=== PATIENT | male | born 1970 | race Caucasian/White ===

== ENCOUNTER 2022-01-26 12:17 | Emergency (ER) | payer BC ==
[~2022-01-26] VITALS: Ht 190.5 cm; Wt 111.4 kg
[2022-01-26 12:20] VITALS: BP 146/105
== END 2022-01-26 16:02 | disposition home or self-care (01) ==
LOC: ER 12:17
DX: S60.221A Contusion of right hand, initial encounter (principal); W21.89XA Striking against or struck by other sports equipment, initial encounter; Y93.89 Activity, other specified; Y92.89 Other specified places as the place of occurrence of the external cause; Y99.8 Other external cause status
CPT/HCPCS: 73090; 99283

== ENCOUNTER 2024-05-09 12:38 | Inpatient (IN) | payer BC ==
[~2024-05-09] VITALS: Ht 190.5 cm; Wt 122.1 kg
[2024-05-09] VITALS (17 sets, daily range): BP systolic 114–144; BP diastolic 78–98; PULSE 86–100; RESP 13–23; TEMP 98.1–98.5; O2SAT 91–97
[2024-05-09 13:34] LABS: BILIRUBIN,URINE NEGATIVE (Neg); CLARITY,URINE CLEAR (Clear); COLOR,URINE YELLOW (Yellow); GLUCOSE, URINE NEGATIVE (Neg); KETONES,URINE NEGATIVE (Neg); LEUKOCYTE ESTERASE ,URINE NEGATIVE (Neg); NITRITES, URINE NEGATIVE (Neg); OCCULT BLOOD,URINE NEGATIVE (Neg); PH,URINE 6.5 (4.8-8.0); PROTEIN,URINE NEGATIVE (Neg); UROBILINOGEN,URINE 0.2 E.U/dL (0.2-1.0)
[2024-05-09 13:44] LABS: UA COLLECTION TYPE CLN CATCH MIDSTREAM
[2024-05-09] MEDS ORDERED: DOXY20TA20 PO (14:00)
[2024-05-09] MEDS ORDERED: PANT40TA54 PO (14:01)
[2024-05-09 14:04] LABS: BASOPHILS % (AUTO) 0.2 % (0-1); EOSINOPHILS % (AUTO) 0.1 % (0-6); HEMATOCRIT 50.4 % (42.0-52.0); HEMOGLOBIN 17.4 g/dl (14.0-17.9); LYMPHOCYTES # (AUTO) 0.7 X10'3 (1.1-4.8); LYMPHOCYTES % (AUTO) 4.7 % (21-51); MEAN CORPUSCULAR HEMOGLOBIN 32.4 PG (27.0-31.0); MEAN CORPUSCULAR HGB CONC 34.6 g/dL (33.0-36.5); MEAN CORPUSCULAR VOLUME 93.6 FL (78-98); MEAN PLATELET VOLUME 8.1 FL (7.4-10.4); MONOCYTES # (AUTO) 1.1 X10'3 (0-0.9); MONOCYTES % (AUTO) 7.1 % (2-12); NEUTROPHILS # (AUTO) 13.8 X10'3 (1.8-7.7); NEUTROPHILS % (AUTO) 87.9 % (42-75); PLATELET COUNT 178 X10'3 (140-440); RED BLOOD COUNT 5.38 X10'6 (4.70-6.10); RED CELL DISTRIBUTION WIDTH 13.4 % (11.5-14.5); WHITE BLOOD COUNT 15.7 X10'3 (4.5-11.0)
[2024-05-09 14:22] LABS: ALANINE AMINOTRANSFERASE 62 U/L (12-78); ALBUMIN 4.1 G/DL (3.4-5.0); ALBUMIN/GLOBULIN RATIO 1.2 (1.1-1.5); ALKALINE PHOSPHATASE 85 IU/L (46-116); ANION GAP 12 (8-16); ASPARTATE AMINO TRANSFERASE 34 U/L (10-37); BILIRUBIN,TOTAL 1.5 MG/DL (0.1-1.0); BLOOD UREA NITROGEN 13 MG/DL (7-18); BUN/CREATININE RATIO 13.1 (10.0-20.0); CALCIUM 9.6 MG/DL (8.5-10.1); CHLORIDE 99 MMOL/L (99-107); CREATININE 0.99 MG/DL (0.60-1.10); GLUCOSE 125 MG/DL (70-104); LIPASE 22 U/L (16-77); POTASSIUM 3.3 MMOL/L (3.5-5.1); SODIUM 136 MMOL/L (135-145); TOTAL CARBON DIOXIDE 25.1 MMOL/L (24-32); TOTAL PROTEIN 7.6 G/DL (6.4-8.2); eCRCL 100 ML/MIN; eGFR 78 ML/MIN
[2024-05-09] MEDS: ondansetron/PF 4mg/2ml inj IV ONE (14:34)
[2024-05-09] MEDS: HYDROmorphone 1 mg/ml syringe IV ONE ×3 (14:35→18:30)
[2024-05-09] MEDS: normal saline 1000ml 1,000 ML IV ONE (14:35)
[2024-05-09] MEDS: piperacillin/tazo 3.375gm/50ml 50 ML IV STA (14:36)
[2024-05-09] MEDS ORDERED: iohexol 300mg/ml 100ml inj. ONE (14:36)
[2024-05-09] MEDS ORDERED: magnesium sulf-water 4G/100mL 100 ML IV PRN (15:35)
[2024-05-09] MEDS ORDERED: potassium Cl 40MEQ/1/2NS 520ml 520 ML IV PRN (15:35)
[2024-05-09] MEDS ORDERED: ondansetron/PF 4mg/2ml inj IV PRN ×2 (15:35→16:15)
[2024-05-09] MEDS ORDERED: magnesium sulf-water 2g/50mL 50 ML IV PRN (15:35)
[2024-05-09] MEDS ORDERED: acetaminophen 325mg tablet PO PRN (15:35)
[2024-05-09] MEDS ORDERED: magnesium Cl slow-release 64mg tablet PO PRN (15:35)
[2024-05-09] MEDS ORDERED: magnesium hydroxide 30ml (MOM) UD suspension PO PRN (15:35)
[2024-05-09] MEDS ORDERED: mag hydrox/Alum hydrox/simeth 30ml oral suspension PO PRN (15:35)
[2024-05-09] MEDS ORDERED: potassium Cl 20 mEq SR tablet PO PRN (15:35)
[2024-05-09] MEDS: normal saline 1000ml 1,000 ML IV SCH (15:35)
[2024-05-09] MEDS ORDERED: BUPIVAcaine/PF 2.5mg/ml (0.25%) 10ml vial ONE (15:53)
[2024-05-09] MEDS ORDERED: fentaNYL/PF 50MCG/1 ML 2ML syringe IV PRN ×2 (16:15)
[2024-05-09] MEDS ORDERED: morphine 4 MG/ML inj SYRINge IV PRN (16:15)
[2024-05-09] MEDS ORDERED: labetalol 20mg/4ml (5mg/ml) syringe IV PRN (16:15)
[2024-05-09] MEDS ORDERED: hydrALAZINE 20mg/ml inj. IV PRN (16:15)
[2024-05-09] MEDS ORDERED: sevoflurane 250ml liquid IH ONE (16:18)
[2024-05-09] MEDS ORDERED: midazolam 1 mg/ML 2ml injection ONE (16:20)
[2024-05-09] MEDS ORDERED: fentaNYL/PF 50MCG/1 ML 2ML syringe ONE (16:20)
[2024-05-09] MEDS ORDERED: dexamethasone sod phosphate 4mg/ml inj. ONE (16:22)
[2024-05-09] MEDS ORDERED: propofol inj 20 ML IV ONE ×2 (16:22→16:48)
[2024-05-09] MEDS ORDERED: LIDOcaine 2% (20mg/ml) 5ml vial ONE (16:22)
[2024-05-09] MEDS ORDERED: ceFAZolin 1000mg inj ONE ×3 (16:22)
[2024-05-09] MEDS ORDERED: rocuronium 10mg/ml inj IV ONE ×2 (16:22→16:52)
[2024-05-09] MEDS ORDERED: ondansetron/PF 4mg/2ml inj ONE (16:22)
[2024-05-09] MEDS ORDERED: LORazepam 2 mg/ml vial IV PRN (16:25)
[2024-05-09] MEDS ORDERED: sugammadex 200mg/2ml injection IV ONE (16:42)
[2024-05-09] MEDS ORDERED: metroNIDAZOLE-Flagyl 500mg/NS 100 ML IV ONE (16:45)
[2024-05-09] MEDS ORDERED: labetalol 20mg/4ml (5mg/ml) syringe IV ONE (16:49)
[2024-05-09] MEDS: LACTED IV ONE (18:30)
[2024-05-09] MEDS: ringers solution, lacted 1,000 ML IV SCH ×2 (18:30→23:25)
[2024-05-09] MEDS: [UNRECOGNIZED DRUG - OTHER] IV ONE (18:30)
[2024-05-09] MEDS: RINGERS IV ONE (18:30)
[2024-05-09] MEDS: morphine 2 MG/ML inj. syringe IV PRN (18:42)
[2024-05-09] MEDS: K and/or MAG REPLACEMENT MC SCH (20:00)
[2024-05-09] MEDS: thiamine 100mg/ml 2ml inj. IV SCH (20:52)
[2024-05-09] MEDS: piperacillin/tazo 3.375gm/50ml 50 ML IV SCH (20:52)
[2024-05-09] MEDS ORDERED: ringers solution, lactated 500ml IV solution IV SCH (21:00)
[2024-05-10] MEDS: folic acid 1mg/0.2ml inj IV SCH (00:30)
[2024-05-10] MEDS: potassium Cl 20 mEq SR tablet PO PRN (00:32)
[2024-05-10] MEDS: morphine 2 MG/ML inj. syringe IV PRN (04:55)
[2024-05-10 05:21] LABS: BASOPHILS % (AUTO) 0.1 % (0-1); EOSINOPHILS % (AUTO) 0 % (0-6); HEMATOCRIT 45.7 % (42.0-52.0); HEMOGLOBIN 15.6 g/dl (14.0-17.9); LYMPHOCYTES # (AUTO) 0.5 X10'3 (1.1-4.8); LYMPHOCYTES % (AUTO) 3.9 % (21-51); MEAN CORPUSCULAR HEMOGLOBIN 32.3 PG (27.0-31.0); MEAN CORPUSCULAR VOLUME 94.8 FL (78-98); MEAN PLATELET VOLUME 8.5 FL (7.4-10.4); MONOCYTES # (AUTO) 0.8 X10'3 (0-0.9); MONOCYTES % (AUTO) 6.9 % (2-12); NEUTROPHILS # (AUTO) 10.6 X10'3 (1.8-7.7); NEUTROPHILS % (AUTO) 89.1 % (42-75); PLATELET COUNT 165 X10'3 (140-440); RED BLOOD COUNT 4.82 X10'6 (4.70-6.10); RED CELL DISTRIBUTION WIDTH 13.5 % (11.5-14.5); WHITE BLOOD COUNT 11.9 X10'3 (4.5-11.0)
[2024-05-10 05:48] LABS: ALANINE AMINOTRANSFERASE 42 U/L (12-78); ALBUMIN 3.1 G/DL (3.4-5.0); ALBUMIN/GLOBULIN RATIO 0.8 (1.1-1.5); ALKALINE PHOSPHATASE 53 IU/L (46-116); ANION GAP 9 (8-16); ASPARTATE AMINO TRANSFERASE 31 U/L (10-37); BILIRUBIN,TOTAL 1.7 MG/DL (0.1-1.0); BLOOD UREA NITROGEN 12 MG/DL (7-18); CALCIUM 8.9 MG/DL (8.5-10.1); CHLORIDE 103 MMOL/L (99-107); CHOL/HDL RATIO 1.8 (0.00-4.99); CHOLESTEROL 138 MG/DL (0-200); CREATININE 1.09 MG/DL (0.60-1.10); GLUCOSE 168 MG/DL (70-104); HDL CHOLESTEROL 75 MG/DL (35-60); LDL CHOLESTEROL 52 MG/DL (50-100); LIPASE 15 U/L (16-77); PHOSPHORUS 2.8 MG/DL (2.3-4.5); POTASSIUM 3.7 MMOL/L (3.5-5.1); SODIUM 137 MMOL/L (135-145); TOTAL CARBON DIOXIDE 24.7 MMOL/L (24-32); TOTAL PROTEIN 6.8 G/DL (6.4-8.2); TRIGLYCERIDES 69 MG/DL (20-135); eCRCL 34 ML/MIN; eGFR 70 ML/MIN
[2024-05-10 06:00] VITALS: BP 126/67; PULSE 76; RESP 14; TEMP 98.2; O2SAT 93
[2024-05-10 10:00] VITALS: BP 129/86; PULSE 84; RESP 18; TEMP 97.9; O2SAT 92
[2024-05-10] MEDS: HYDROcodone/acetaminophen 10/325mg tab PO PRN (10:29)
[2024-05-10] MEDS: pantoprazole 40 MG vial IV SCH (10:33)
[2024-05-10 18:00] VITALS: BP 129/81; PULSE 54; RESP 17; TEMP 99; O2SAT 93
[2024-05-10 20:00] VITALS: RESP 17; O2SAT 93
[2024-05-10 22:00] VITALS: BP 111/75; PULSE 86; RESP 20; TEMP 99; O2SAT 94
[2024-05-10 23:36] VITALS: O2SAT 94
[2024-05-11 04:38] LABS: BASOPHILS % (AUTO) 0.2 % (0-1); EOSINOPHILS % (AUTO) 0.5 % (0-6); HEMATOCRIT 42.7 % (42.0-52.0); HEMOGLOBIN 14.5 g/dl (14.0-17.9); LYMPHOCYTES # (AUTO) 0.7 X10'3 (1.1-4.8); MEAN CORPUSCULAR HEMOGLOBIN 32.5 PG (27.0-31.0); MEAN CORPUSCULAR VOLUME 95.6 FL (78-98); MEAN PLATELET VOLUME 8.4 FL (7.4-10.4); MONOCYTES # (AUTO) 0.5 X10'3 (0-0.9); MONOCYTES % (AUTO) 5.9 % (2-12); NEUTROPHILS # (AUTO) 7.2 X10'3 (1.8-7.7); NEUTROPHILS % (AUTO) 85.4 % (42-75); PLATELET COUNT 149 X10'3 (140-440); RED BLOOD COUNT 4.47 X10'6 (4.70-6.10); RED CELL DISTRIBUTION WIDTH 13.8 % (11.5-14.5); WHITE BLOOD COUNT 8.4 X10'3 (4.5-11.0)
[2024-05-11 04:56] LABS: ALANINE AMINOTRANSFERASE 37 U/L (12-78); ALBUMIN 2.9 G/DL (3.4-5.0); ALBUMIN/GLOBULIN RATIO 0.8 (1.1-1.5); ALKALINE PHOSPHATASE 50 IU/L (46-116); ANION GAP 9 (8-16); ASPARTATE AMINO TRANSFERASE 38 U/L (10-37); BILIRUBIN,TOTAL 1.2 MG/DL (0.1-1.0); BLOOD UREA NITROGEN 14 MG/DL (7-18); BUN/CREATININE RATIO 12.6 (10.0-20.0); CHLORIDE 105 MMOL/L (99-107); CREATININE 1.11 MG/DL (0.60-1.10); GLUCOSE 117 MG/DL (70-104); LIPASE 15 U/L (16-77); MAGNESIUM 2.3 MG/DL (1.5-2.4); PHOSPHORUS 2.6 MG/DL (2.3-4.5); POTASSIUM 3.7 MMOL/L (3.5-5.1); SODIUM 140 MMOL/L (135-145); TOTAL CARBON DIOXIDE 26.2 MMOL/L (24-32); TOTAL PROTEIN 6.7 G/DL (6.4-8.2); eCRCL 89 ML/MIN; eGFR 69 ML/MIN
[2024-05-11 06:00] VITALS: BP 117/80; PULSE 90; RESP 20; TEMP 98.4; O2SAT 95
[2024-05-11 10:00] VITALS: BP 126/83; PULSE 97; RESP 18; TEMP 98.3; O2SAT 96
[2024-05-11] MEDS ORDERED: LIDOcaine 1% W/epiNEPHrine 1:100,000 20ml vial SQ ONE (11:25)
[2024-05-11] MEDS: linezolid 600mg/300ml PREMIX 300 ML IV SCH (12:42)
[2024-05-11] MEDS: CefTRIAXone 2gm/D5W 50ml BAG 50 ML IV SCH (12:43)
[2024-05-11] MEDS: metroNIDAZOLE-Flagyl 500mg/NS 100 ML IV SCH (17:08)
[2024-05-11 18:00] VITALS: BP 128/88; PULSE 89; RESP 17; TEMP 98.7; O2SAT 94
[2024-05-11 20:10] VITALS: RESP 16
[2024-05-11 22:00] VITALS: BP 116/63; PULSE 89; RESP 20; TEMP 100.2; O2SAT 95
[2024-05-12 04:26] LABS: BASOPHILS % (AUTO) 0.3 % (0-1); EOSINOPHILS # (AUTO) 0.2 X10'3 (0-0.9); EOSINOPHILS % (AUTO) 2.1 % (0-6); HEMATOCRIT 42.8 % (42.0-52.0); HEMOGLOBIN 14.8 g/dl (14.0-17.9); LYMPHOCYTES # (AUTO) 0.8 X10'3 (1.1-4.8); LYMPHOCYTES % (AUTO) 10.4 % (21-51); MEAN CORPUSCULAR HEMOGLOBIN 33.1 PG (27.0-31.0); MEAN CORPUSCULAR HGB CONC 34.5 g/dL (33.0-36.5); MEAN CORPUSCULAR VOLUME 95.8 FL (78-98); MEAN PLATELET VOLUME 8.2 FL (7.4-10.4); MONOCYTES # (AUTO) 0.6 X10'3 (0-0.9); MONOCYTES % (AUTO) 8.5 % (2-12); NEUTROPHILS # (AUTO) 5.9 X10'3 (1.8-7.7); NEUTROPHILS % (AUTO) 78.7 % (42-75); PLATELET COUNT 174 X10'3 (140-440); RED BLOOD COUNT 4.46 X10'6 (4.70-6.10); RED CELL DISTRIBUTION WIDTH 13.6 % (11.5-14.5); WHITE BLOOD COUNT 7.5 X10'3 (4.5-11.0)
[2024-05-12 04:44] LABS: ALANINE AMINOTRANSFERASE 40 U/L (12-78); ALBUMIN 2.6 G/DL (3.4-5.0); ALBUMIN/GLOBULIN RATIO 0.6 (1.1-1.5); ALKALINE PHOSPHATASE 59 IU/L (46-116); ANION GAP 7 (8-16); ASPARTATE AMINO TRANSFERASE 37 U/L (10-37); BILIRUBIN,TOTAL 0.8 MG/DL (0.1-1.0); BLOOD UREA NITROGEN 12 MG/DL (7-18); BUN/CREATININE RATIO 9.4 (10.0-20.0); CALCIUM 8.7 MG/DL (8.5-10.1); CHLORIDE 104 MMOL/L (99-107); CREATININE 1.27 MG/DL (0.60-1.10); GLUCOSE 115 MG/DL (70-104); LIPASE 22 U/L (16-77); MAGNESIUM 2.2 MG/DL (1.5-2.4); PHOSPHORUS 3.8 MG/DL (2.3-4.5); POTASSIUM 3.8 MMOL/L (3.5-5.1); SODIUM 140 MMOL/L (135-145); TOTAL CARBON DIOXIDE 29.3 MMOL/L (24-32); TOTAL PROTEIN 6.8 G/DL (6.4-8.2); eCRCL 78 ML/MIN; eGFR 59 ML/MIN
[2024-05-12 06:00] VITALS: BP 128/79; PULSE 76; RESP 20; TEMP 98.9; O2SAT 95
[2024-05-12 08:04] VITALS: RESP 16
[2024-05-12 10:00] VITALS: BP 137/87; PULSE 73; RESP 17; TEMP 99.5; O2SAT 95
[2024-05-12] MEDS ORDERED: Dakins solution (1/4 strength) 473ml solution TP SCH (10:40)
[2024-05-12 18:00] VITALS: BP 145/91; PULSE 80; RESP 17; TEMP 98.9; O2SAT 96
[2024-05-12 20:00] VITALS: RESP 18
[2024-05-12 22:00] VITALS: BP 122/71; PULSE 79; RESP 18; TEMP 98.8; O2SAT 94
[2024-05-13 05:10] LABS: BASOPHILS % (AUTO) 0.3 % (0-1); EOSINOPHILS # (AUTO) 0.2 X10'3 (0-0.9); EOSINOPHILS % (AUTO) 2.3 % (0-6); HEMATOCRIT 44.7 % (42.0-52.0); HEMOGLOBIN 15.2 g/dl (14.0-17.9); LYMPHOCYTES # (AUTO) 0.7 X10'3 (1.1-4.8); LYMPHOCYTES % (AUTO) 8.3 % (21-51); MEAN CORPUSCULAR HEMOGLOBIN 32.3 PG (27.0-31.0); MEAN CORPUSCULAR VOLUME 94.8 FL (78-98); MEAN PLATELET VOLUME 7.8 FL (7.4-10.4); MONOCYTES # (AUTO) 0.9 X10'3 (0-0.9); MONOCYTES % (AUTO) 10.3 % (2-12); NEUTROPHILS # (AUTO) 7.1 X10'3 (1.8-7.7); NEUTROPHILS % (AUTO) 78.8 % (42-75); PLATELET COUNT 204 X10'3 (140-440); RED BLOOD COUNT 4.72 X10'6 (4.70-6.10); RED CELL DISTRIBUTION WIDTH 13.5 % (11.5-14.5)
[2024-05-13 05:25] LABS: ALANINE AMINOTRANSFERASE 45 U/L (12-78); ALBUMIN 2.6 G/DL (3.4-5.0); ALBUMIN/GLOBULIN RATIO 0.7 (1.1-1.5); ALKALINE PHOSPHATASE 58 IU/L (46-116); ANION GAP 6 (8-16); ASPARTATE AMINO TRANSFERASE 33 U/L (10-37); BILIRUBIN,TOTAL 0.9 MG/DL (0.1-1.0); CALCIUM 8.6 MG/DL (8.5-10.1); CHLORIDE 104 MMOL/L (99-107); CREATININE 1.22 MG/DL (0.60-1.10); GLUCOSE 114 MG/DL (70-104); LIPASE 41 U/L (16-77); MAGNESIUM 2.2 MG/DL (1.5-2.4); PHOSPHORUS 4.7 MG/DL (2.3-4.5); SODIUM 139 MMOL/L (135-145); TOTAL CARBON DIOXIDE 29.2 MMOL/L (24-32); TOTAL PROTEIN 6.6 G/DL (6.4-8.2); eCRCL 81 ML/MIN; eGFR 61 ML/MIN
[2024-05-13 05:31] LABS: BLOOD UREA NITROGEN 12 MG/DL (7-18); BUN/CREATININE RATIO 9.8 (10.0-20.0)
[2024-05-13 06:00] VITALS: BP 116/76; PULSE 80; RESP 18; TEMP 97.9; O2SAT 95
[2024-05-13 07:58] VITALS: RESP 16
[2024-05-13 09:44] VITALS: BP 135/87; PULSE 79; RESP 18; TEMP 97.8; O2SAT 93
[2024-05-13 18:00] VITALS: BP 119/83; PULSE 80; RESP 16; TEMP 98.7; O2SAT 96
[2024-05-13 20:00] VITALS: RESP 16; O2SAT 96
[2024-05-13 22:00] VITALS: BP 138/79; PULSE 74; RESP 16; TEMP 98; O2SAT 94
[2024-05-14 06:01] LABS: BASOPHILS % (AUTO) 0.2 % (0-1); EOSINOPHILS # (AUTO) 0.2 X10'3 (0-0.9); HEMATOCRIT 47.2 % (42.0-52.0); HEMOGLOBIN 16.3 g/dl (14.0-17.9); LYMPHOCYTES # (AUTO) 0.9 X10'3 (1.1-4.8); LYMPHOCYTES % (AUTO) 8.7 % (21-51); MEAN CORPUSCULAR HEMOGLOBIN 32.6 PG (27.0-31.0); MEAN CORPUSCULAR HGB CONC 34.5 g/dL (33.0-36.5); MEAN CORPUSCULAR VOLUME 94.5 FL (78-98); MEAN PLATELET VOLUME 7.8 FL (7.4-10.4); MONOCYTES # (AUTO) 1.2 X10'3 (0-0.9); NEUTROPHILS # (AUTO) 8.2 X10'3 (1.8-7.7); NEUTROPHILS % (AUTO) 78.1 % (42-75); PLATELET COUNT 233 X10'3 (140-440); RED CELL DISTRIBUTION WIDTH 13.3 % (11.5-14.5); WHITE BLOOD COUNT 10.5 X10'3 (4.5-11.0)
[2024-05-14 06:22] LABS: ALANINE AMINOTRANSFERASE 40 U/L (12-78); ALBUMIN 2.7 G/DL (3.4-5.0); ALBUMIN/GLOBULIN RATIO 0.6 (1.1-1.5); ALKALINE PHOSPHATASE 63 IU/L (46-116); ANION GAP 6 (8-16); ASPARTATE AMINO TRANSFERASE 21 U/L (10-37); BILIRUBIN,TOTAL 0.7 MG/DL (0.1-1.0); BLOOD UREA NITROGEN 12 MG/DL (7-18); BUN/CREATININE RATIO 11.1 (10.0-20.0); CALCIUM 8.9 MG/DL (8.5-10.1); CHLORIDE 103 MMOL/L (99-107); CREATININE 1.08 MG/DL (0.60-1.10); GLUCOSE 119 MG/DL (70-104); LIPASE 37 U/L (16-77); PHOSPHORUS 3.7 MG/DL (2.3-4.5); POTASSIUM 4.3 MMOL/L (3.5-5.1); SODIUM 140 MMOL/L (135-145); TOTAL CARBON DIOXIDE 30.7 MMOL/L (24-32); TOTAL PROTEIN 6.9 G/DL (6.4-8.2); eCRCL 91 ML/MIN; eGFR 71 ML/MIN
[2024-05-14 06:51] VITALS: BP 120/77; PULSE 72; RESP 18; TEMP 98; O2SAT 94
[2024-05-14 08:00] VITALS: RESP 16
[2024-05-14 11:00] VITALS: BP 134/88; PULSE 84; RESP 16; TEMP 99.2; O2SAT 95
[2024-05-14] MEDS: linezolid 600mg tablet PO SCH (12:06)
[2024-05-14 18:00] VITALS: BP 124/70; PULSE 79; RESP 16; TEMP 99; O2SAT 96
[2024-05-14] MEDS: lactobacillus rhamnosus 10,000 MMU CELLS/CAPSULE PO SCH (19:44)
[2024-05-14] MEDS: metroNIDAZOLE 500mg tablet PO SCH (19:44)
[2024-05-14 20:00] VITALS: RESP 16; O2SAT 96
[2024-05-14 22:00] VITALS: BP 129/75; PULSE 77; RESP 18; TEMP 99; O2SAT 95
[2024-05-15] MEDS: ciprofloxacin 250mg tablet PO SCH (00:15)
[2024-05-15 06:00] VITALS: BP 125/71; PULSE 74; RESP 18; TEMP 98.1; O2SAT 96
[2024-05-15 09:41] LABS: BASOPHILS % (AUTO) 0.3 % (0-1); EOSINOPHILS # (AUTO) 0.1 X10'3 (0-0.9); EOSINOPHILS % (AUTO) 1.6 % (0-6); HEMATOCRIT 46.5 % (42.0-52.0); HEMOGLOBIN 15.9 g/dl (14.0-17.9); LYMPHOCYTES # (AUTO) 0.8 X10'3 (1.1-4.8); MEAN CORPUSCULAR HEMOGLOBIN 32.6 PG (27.0-31.0); MEAN CORPUSCULAR HGB CONC 34.1 g/dL (33.0-36.5); MEAN CORPUSCULAR VOLUME 95.5 FL (78-98); MEAN PLATELET VOLUME 7.7 FL (7.4-10.4); MONOCYTES # (AUTO) 0.5 X10'3 (0-0.9); MONOCYTES % (AUTO) 5.6 % (2-12); NEUTROPHILS # (AUTO) 7.6 X10'3 (1.8-7.7); NEUTROPHILS % (AUTO) 83.5 % (42-75); PLATELET COUNT 259 X10'3 (140-440); RED BLOOD COUNT 4.87 X10'6 (4.70-6.10); RED CELL DISTRIBUTION WIDTH 13.5 % (11.5-14.5); WHITE BLOOD COUNT 9.1 X10'3 (4.5-11.0)
[2024-05-15 09:47] LABS: ALANINE AMINOTRANSFERASE 39 U/L (12-78); ALBUMIN 2.7 G/DL (3.4-5.0); ALBUMIN/GLOBULIN RATIO 0.7 (1.1-1.5); ALKALINE PHOSPHATASE 61 IU/L (46-116); ANION GAP 10 (8-16); ASPARTATE AMINO TRANSFERASE 18 U/L (10-37); BILIRUBIN,TOTAL 0.5 MG/DL (0.1-1.0); BLOOD UREA NITROGEN 14 MG/DL (7-18); BUN/CREATININE RATIO 13.3 (10.0-20.0); CALCIUM 8.8 MG/DL (8.5-10.1); CHLORIDE 103 MMOL/L (99-107); CREATININE 1.05 MG/DL (0.60-1.10); GLUCOSE 194 MG/DL (70-104); POTASSIUM 4.2 MMOL/L (3.5-5.1); SODIUM 139 MMOL/L (135-145); TOTAL CARBON DIOXIDE 25.8 MMOL/L (24-32); TOTAL PROTEIN 6.6 G/DL (6.4-8.2); eCRCL 94 ML/MIN; eGFR 73 ML/MIN
[2024-05-15 10:08] LABS: PLATELET ESTIMATE NORMAL; TOTAL CELLS COUNTED 100
[2024-05-15 11:00] VITALS: BP 127/87; PULSE 79; RESP 18; TEMP 99; O2SAT 95
[2024-05-15] MEDS ORDERED: LINE600T14 PO (11:50)
[2024-05-15] MEDS ORDERED: METR-159 PO (11:50)
[2024-05-15] MEDS ORDERED: LACT1CAP26 PO (11:50)
[2024-05-15] MEDS ORDERED: CIPR-259 PO (11:53)
== END 2024-05-15 17:15 | disposition home or self-care (01) | DRG 398 ==
LOC: ER 12:39 → SUR 3N 15:36
PROVIDERS: ADMIT Internal Medicine; ATTEND Internal Medicine
PROC: BW211ZZ Computerized Tomography (CT Scan) of Abdomen and Pelvis using Low Osmolar Contrast (ICD-10-PCS; 2024-05-09)
PROC: 0DTJ4ZZ Resection of Appendix, Percutaneous Endoscopic Approach (ICD-10-PCS; principal; 2024-05-09 16:18)
DX: K35.201 Acute appendicitis with generalized peritonitis, with perforation, without abscess (principal); L03.311 Cellulitis of abdominal wall; K42.9 Umbilical hernia without obstruction or gangrene; K21.9 Gastro-esophageal reflux disease without esophagitis; R73.9 Hyperglycemia, unspecified; E87.6 Hypokalemia; Z72.0 Tobacco use
CPT/HCPCS: 99285; Z7506; Z7508; 36415; 74177; 80053; 80061; 81003; 82948; 83036; 83690; 83735; 84100; 84145; 85007; 85025; 85651; 87081; 89055; 93005; A4215; A4615; A4618; A7000; G0378; J0131; J0690; J0696; J1100; J1171; J2003; J2020; J2250; J2270; J2405; J2470; J2543; J2704; J3010; J3411; J3490; J7030; J7120; Q9967